=== PATIENT | female | born 1965 | race Caucasian/White ===

== ENCOUNTER 2019-05-30 09:23 | Emergency (ER) | payer OTHER ==
[2019-05-30] MEDS ORDERED: Doxycycline 100 MG CAP ONE (09:48)
== END 2019-05-30 10:10 | disposition home or self-care (01) ==
LOC: MADERS 09:23
DX: S61.452A Open bite of left hand, initial encounter (principal); S61.432A Puncture wound without foreign body of left hand, initial encounter; F17.210 Nicotine dependence, cigarettes, uncomplicated; W55.01XA Bitten by cat, initial encounter
CPT/HCPCS: 99283